=== PATIENT | female | born 1975 | race African-American/Black ===

== ENCOUNTER 2020-08-16 23:16 | Emergency (ER) | payer SELFPAY ==
[~2020-08-16] VITALS: Ht 160 cm; Wt 86.2 kg
[2020-08-17 00:14] LABS: CLARITY,URINE CLEAR (CLEAR); COLOR,URINE YELLOW (YELLOW); KETONES,URINE NEGATIVE (NEGATIVE); LEUKOCYTE ESTERASE ,URINE NEGATIVE (NEGATIVE); NITRITE,URINE NEGATIVE (NEGATIVE); PROTEIN,URINE DIPSTICK NEGATIVE (NEGATIVE); URINE UROBILINOGEN 0.2 mg/dL (0.2 - 1)
[2020-08-17 00:23] LABS: BACTERIA,URINE FEW /HPF; EPITHELIAL CELLS,URINE RARE /LPF; WBC,URINE (MAN) 0-5 /HPF (0-5)
[2020-08-17] MEDS ORDERED: ORPHENADRINE CITRATE 30 MG/ML VIAL IM ONE (00:30)
[2020-08-17] MEDS ORDERED: KETOROLAC TROMETHAMINE 60 MG/2 ML VIAL IM ONE (00:30)
[2020-08-17 01:15] VITALS: BP 141/73
== END 2020-08-17 01:15 | disposition home or self-care (01) ==
LOC: ER 23:20
DX: M54.40 Lumbago with sciatica, unspecified side (principal); Z88.6 Allergy status to analgesic agent; Z88.5 Allergy status to narcotic agent; Z88.0 Allergy status to penicillin
CPT/HCPCS: 81001; 81025; 99283; J1885; J2360

== ENCOUNTER 2021-03-27 10:21 | Emergency (ER) | payer BC ==
[~2021-03-27] VITALS: Ht 160 cm; Wt 86.2 kg
[2021-03-27] MEDS ORDERED: KETOROLAC TROMETHAMINE 30 MG/ML VIAL IM NR (12:30)
== END 2021-03-27 14:48 | disposition home or self-care (01) ==
LOC: ER 11:53
DX: M79.662 Pain in left lower leg (principal); Z86.718 Personal history of other venous thrombosis and embolism
CPT/HCPCS: 93971; 99283; J1885